=== PATIENT | female | born 1975 | race Caucasian/White ===

== ENCOUNTER → 2019-05-15 | Day surgery (SDC) | payer BC, OTHER ==
[2019-05-13 14:36] VITALS: BMI 34.7
[~2019-05-15] MED LIST: GLYCOPYRROLATE 0.2 MG/ML 2 ML VIAL ONE; LACTATED RINGERS 1,000 ML IV SCH; LIDOCAINE 1% 20 ML VIAL (10MG/ML) FOR IV START INTRADERMA PRN; LIDOCAINE 1% INJ 10MG/ML (20 ML MDV) ONE; PROPOFOL 10 MG/ML 20 ML VIAL IV ONE
--- NOTE | 2019-05-15 08:36 | P.GSHP ---
History of Present Illness H&P Date: 05/15/19 CHIEF COMPLAINT: GERD and colon screen HISTORY OF PRESENT ILLNESS: The patient is a 43-year-old female who presents with gastroesophageal reflux disease and need for colon screen. Upper and lower endoscopy were offered for further evaluation and management. PAST MEDICAL HISTORY: Please see list. PAST SURGICAL HISTORY: Please see list. MEDICATIONS: Please see list. ALLERGIES: Please see list. SOCIAL HISTORY: No illicit drug use FAMILY HISTORY: No reports of Crohn disease or ulcerative colitis. REVIEW OF ORGAN SYSTEMS: CONSTITUTIONAL: No reports of fevers or chills. GI: Denies any blood in stools or constipation. PHYSICAL EXAM: VITAL SIGNS: Stable GENERAL: Well-developed pleasant in no acute distress. HEENT: No scleral icterus. Extraocular movements grossly intact. Moist buccal mucosa. NECK: Supple without lymphadenopathy. CHEST: Unlabored respirations. Equal bilateral excursions. CARDIOVASCULAR: Regular rate and rhythm. Distal 2+ pulses. ABDOMEN: Soft, nondistended. MUSCULOSKELETAL: No clubbing, cyanosis, or edema. ASSESSMENT: 1. Gastroesophageal reflux disease 2. Colon screen. PLAN: 1. Recommend proceeding with an upper and lower endoscopy Past Medical History Past Medical History: GI Bleed, Hypertension Additional Past Medical History / Comment(s): migraines, anemia, constipation, abdominal discomfort History of Any Multi-Drug Resistant Organisms: None Reported Past Surgical History: Section, Cholecystectomy, Tubal Ligation Additional Past Surgical History / Comment(s): conization Past Anesthesia/Blood Transfusion Reactions: No Reported Reaction Smoking Status: Never smoker - Past Family History Mother Family Medical History: No Reported History Medications and Allergies Home Medications Medication Instructions Recorded Confirmed Type Ferrous Sulfate [Feosol] 325 mg PO DAILY 08/04/15 05/13/19 History Hydrochlorothiazide [Hydrodiuril] 25 mg PO DAILY 05/13/19 05/13/19 History Ranitidine HCl [Zantac] 75 mg PO DAILY 05/13/19 05/13/19 History Allergies Allergy/AdvReac Type Severity Reaction Status Date / Time No Known Allergies Allergy Verified 05/13/19 14:28
[2019-05-15 10:17] VITALS: TEMP 99
--- NOTE | 2019-05-15 10:55 | P.GSHP ---
History of Present Illness H&P Date: 05/15/19 PREOPERATIVE DIAGNOSIS: Gastroesophageal reflux disease. Morbid obesity. POSTOPERATIVE DIAGNOSIS: Morbid obesity. Gastritis. Gastroesophageal reflux disease. OPERATION: Esophagogastroduodenoscopy with biopsies along antrum. SURGEON: Siobhan Leyva MD ANESTHESIA: MAC. INDICATIONS: The patient is a 43-year-old female who presents with a history of reflux disease. Benefits and risks of the procedure were described. Informed consent was obtained. DESCRIPTION: The patient was brought into the endoscopy suite and laid in the left lateral decubitus position. An Olympus gastroscope was passed along the posterior oropharynx down to the distal esophagus where the squamocolumnar junction was encountered at 38 cm from the incisors. The stomach was entered and bile reflux was found. Additional findings are listed below. Biopsies with cold forceps were obtained of the antrum. The first through third portion of the duodenum was examined and unremarkable. Retroflexion of the scope confirmed Hill grade 1 lower esophageal valve. The squamocolumnar junction demonstrated no LA grade A erosive esophagitis. The stomach was desufflated. The patient tolerated the procedure well. FINDINGS: Squamocolumnar junction 38 cm from the incisors. Diaphragmatic hiatus at 38 cm. Hill grade 1 lower esophageal valve. No LA grade A erosive esophagitis. No active duodenitis. Chronic gastritis with bile reflux RECOMMENDATIONS: Upper endoscopy as needed. Past Medical History Past Medical History: GI Bleed, Hypertension Additional Past Medical History / Comment(s): migraines, anemia, constipation, abdominal discomfort History of Any Multi-Drug Resistant Organisms: None Reported Past Surgical History: Section, Cholecystectomy, Tubal Ligation Additional Past Surgical History / Comment(s): conization Past Anesthesia/Blood Transfusion Reactions: No Reported Reaction Smoking Status: Never smoker - Past Family History Mother Family Medical History: No Reported History Medications and Allergies Home Medications Medication Instructions Recorded Confirmed Type Ferrous Sulfate [Feosol] 325 mg PO DAILY 08/04/15 05/13/19 History Ranitidine HCl [Zantac] 75 mg PO DAILY 05/13/19 05/15/19 History hydrALAZINE HCL [Apresoline] 25 mg PO TID 05/15/19 05/15/19 History Allergies Allergy/AdvReac Type Severity Reaction Status Date / Time No Known Allergies Allergy Verified 05/13/19 14:28 Surgical - Exam Vital Signs Temp Pulse Resp BP Pulse Ox 99.0 F 73 18 122/63 98 05/15/19 10:15 05/15/19 10:15 05/15/19 10:15 05/15/19 10:15 05/15/19 10:15
--- NOTE | 2019-05-15 11:16 | P.PCN ---
Date of Procedure: 05/15/19 Description of Procedure: PREOPERATIVE DIAGNOSIS: Rectal bleeding POSTOPERATIVE DIAGNOSIS: Rectal bleeding Complicated internal hemorrhoids, grade 4 with ulceration OPERATION: Colonoscopy to the ileocecal valve and appendiceal orifice. SURGEON: Siobhan Leyva MD. ANESTHESIA: MAC. INDICATIONS: The patient is a 43-year-old female who presents with history of rectal bleeding. Colonoscopy is offered for diagnosis. Benefits and risks were described and informed consent was obtained. DESCRIPTION OF PROCEDURE: The patient had undergone Gatorade Suprep. She had been brought into the operating room and laid in the left lateral decubitus position. After adequate intravenous sedation, the rectum was examined with 2% lidocaine jelly. Large external hemorrhoids were encountered. The rectal tone was within normal limits. No lesions were palpated in the rectal vault. An Olympus colonoscope was adv anced until the ileocecal valve and appendiceal orifice were clearly viewed. The prep was excellent with clear visualization of the mucosal folds. The scope was removed with visualization of each mucosal fold. No scattered diverticulosis was encountered. No colonic polyps were found. No evidence of focal colitis was found. Retroflexion of the scope demonstrated grade 4 internal hemorrhoids with inflammation and ulceration. The colon was desufflated. The patient had tolerated the procedure well. Withdrawal time was over 6 minutes. FINDINGS: Aronchick preparation quality scale 1 (1-5) Internal hemorrhoids, grade 4 with inflammation or ulceration External prolapsed hemorrhoids, grade 4 with edema No arteriovenous malformations. No adenomatous polyps. No focal colitis. RECOMMENDATIONS: 1. Recommend hemorrhoidectomy for symptomatic grade 4 hemorrhoids 2. Repeat colonoscopy age 49 Plan - Discharge Summary Discharge Rx Participant: No New Discharge Prescriptions: No Action Ferrous Sulfate [Feosol] 325 mg PO DAILY Ranitidine HCl [Zantac] 75 mg PO DAILY hydrALAZINE HCL [Apresoline] 25 mg PO TID Discharge Medication List Ferrous Sulfate [Feosol] 325 mg PO DAILY 08/04/15 [History] Ranitidine HCl [Zantac] 75 mg PO DAILY 05/13/19 [History] hydrALAZINE HCL [Apresoline] 25 mg PO TID 05/15/19 [History] Follow up Appointment(s)/Referral(s): Siobhan Leyva MD [STAFF PHYSICIAN] - 05/21/19 Patient Instructions/Handouts: Rectal Bleeding (DC), Hemorrhoids (DC), Gastritis (DC) Activity/Diet/Wound Care/Special Instructions: Repeat colonoscopy at age 49 Discharge Disposition: HOME SELF-CARE
[2019-05-15 11:18] VITALS: RESP 16
[2019-05-15 11:34] VITALS: BP 135/75; PULSE 65
== END | disposition home or self-care (01) ==
LOC: ORWHC2ENDO 09:42
PROVIDERS: ATTEND Surgery Plastic and Reconstructive Surgery
DX: K29.50 Unspecified chronic gastritis without bleeding (principal); K21.9 Gastro-esophageal reflux disease without esophagitis; K64.3 Fourth degree hemorrhoids; K64.8 Other hemorrhoids; D64.9 Anemia, unspecified; K59.00 Constipation, unspecified; I10 Essential (primary) hypertension; E66.01 Morbid (severe) obesity due to excess calories; G43.909 Migraine, unspecified, not intractable, without status migrainosus; Z87.19 Personal history of other diseases of the digestive system; Z68.34 Body mass index [BMI] 34.0-34.9, adult; Z79.899 Other long term (current) drug therapy; Z98.890 Other specified postprocedural states; Z90.49 Acquired absence of other specified parts of digestive tract; Z98.51 Tubal ligation status
CPT/HCPCS: 81025; 88305; 45378; 43239; J2001; J2704

== ENCOUNTER → 2020-02-04 | Outpatient (CLI) | payer BC ==
--- NOTE | 2020-02-04 12:07 | FL ---
EXAMINATION TYPE: FL barium swallow w video DATE OF EXAM: 02/04/2020 COMPARISON: NONE HISTORY: Dysphasia TECHNIQUE: Fluoroscopy. FINDINGS: Fluoroscopic guidance was provided for the procedure performed in conjunction with the [facility] pathology department. Please see complete report forthcoming from the Speech Pathology departmen t. Various consistencies from thin liquid to solids were administered. Fluoroscopy time 50 seconds. Number of images: 0. No aspiration or penetration was evident. No significant pooling was observed in the vallecula. There was normal propulsion of the bolus. Note is made of some anterior vertebral body spurring at C4-5 and C5-6. Some deviation of the trachea is noted at C5-6 level during swallowing. No obstruction or Zenker's diverticulum is evident. IMPRESSION: 1. Modified barium swallow was essentially normal. There is noted some deviation of the esophagus dur ing swallowing from anterior vertebral body spurring at C5-6.
== END | disposition home or self-care (01) ==
LOC: RADFLMAIN 11:25
PROVIDERS: ATTEND Otolaryngology
DX: R13.10 Dysphagia, unspecified (principal)
CPT/HCPCS: 74230

== ENCOUNTER 2022-05-20 09:33 | Day surgery (SDC) | payer BC ==
[2022-05-18 11:33] VITALS: BMI 35.1
[~2022-05-20 09:33] MED LIST changes: -GLYCOPYRROLATE 0.2 MG/ML 2 ML VIAL ONE; +LIDOCAINE 1% (10MG/ML) FOR IV START INTRADERMA PRN; -LIDOCAINE 1% 20 ML VIAL (10MG/ML) FOR IV START INTRADERMA PRN; -LIDOCAINE 1% INJ 10MG/ML (20 ML MDV) ONE; -PROPOFOL 10 MG/ML 20 ML VIAL IV ONE
[2022-05-20] MEDS ORDERED: LACTATED RINGERS 1,000 ML IV ONE ×2 (11:14)
[2022-05-20 11:19] VITALS: RESP 16; TEMP 97.3
[2022-05-20] MEDS ORDERED: LIDOCAINE 2% INJ 20 MG/ML (2 ML VIAL) ONE (12:09)
[2022-05-20] MEDS ORDERED: PROPOFOL 10 MG/ML 20 ML VIAL IV ONE (12:09)
--- NOTE | 2022-05-20 12:19 | P.PCN ---
Date of Procedure: 05/20/22 Procedure(s) Performed: BRIEF HISTORY: Patient is a 46-year-old, pleasant, white female scheduled for an upper endoscopy as a part of evaluation of long-standing history of GERD and new onset epigastric pain and left upper quadrant abdominal pain for the last 2 months duration. Presently on Protonix 40 mg daily with some help.. PROCEDURE PERFORMED: Esophagogastroduodenoscopy with biopsy. PREOPERATIVE DIAGNOSIS: Long standing history of GERD/epigastric and left upper quadrant abdominal. IV sedation per anesthesia. PROCEDURE: After informed consent was obtained, the patient was brought into the endoscopy unit. IV sedation was administered by Anesthesia under continuous monitoring. Initially the Olympus GIF-140 video endoscope was inserted into the mouth. Esophagus intubated without any difficulty. It was gradually advanced into the stomach and duodenum and carefully examined. The bulb and the second part of the duodenum appeared normal. The scope at this time was withdrawn to the stomach, adequately insufflated with air, and upon careful examination, mucosa of the antrum, had patchy areas of erythema and biopsies were done from this area. Mucosa of the body, cardia and the fundus appeared normal. The scope was then withdrawn into the esophagus. The GE junction was located at 39 cm from the incisors. The esophagus appeared normal. There were no erosions or ulcerations seen, biopsies were done from the distal esophagus and the patient tolerated the procedure well. IMPRESSION: 1. Mild antral gastritis. 2. No evidence of esophagitis or peptic ulcer disease. RECOMMENDATIONS: The findings of this examination were discussed with the patient or esophagitis. She was advised to follow with the biopsy results. Continue on Protonix 40 mg daily and follow antireflux measures..
[2022-05-20 12:53] VITALS: BP 135/85; PULSE 62
== END 2022-05-20 13:25 | disposition home or self-care (01) ==
LOC: ORWHC2ENDO 09:33
PROVIDERS: ATTEND Internal Medicine Gastroenterology
DX: K29.50 Unspecified chronic gastritis without bleeding (principal); K21.9 Gastro-esophageal reflux disease without esophagitis; I10 Essential (primary) hypertension; Z79.899 Other long term (current) drug therapy
CPT/HCPCS: 43239; 81025; 88305